=== PATIENT | male | born 1965 | race African-American/Black ===

== ENCOUNTER → 2017-08-13 | Outpatient (CLI) | payer MEDICARE ==
--- NOTE | 2017-08-13 11:58 | Diagnostic Imaging Report ---
PROCEDURE: CT chest without contrast. TECHNIQUE: Multiple contiguous axial images were obtained through the chest without the use of intravenous contrast. INDICATION: Lung nodule. There are no previous CT chest examinations available for comparison. FINDINGS: The plain film examination of the chest performed on 06/15/17 astutely suggested that there may be a 6 mm micronodule in the lateral aspect of the right upper lobe. On this study, there is a small 5.5 mm noncalcified nodule along the anterior aspect of the right upper lobe (image 19 of 69). I am not certain that this corresponds to the density seen on the chest x-ray. However, there are multiple other similar sized similar-appearing nodules in both lungs. This includes a 6.9 mm nodule in the left apex (image 11 of 69) and a 9.1 mm nodule in the right lower lobe (image 49 of 69). Even in retrospect, these nodules could not be identified on the plain film exam. These nodules are of uncertain etiology but could be related to a long-standing inflammatory/infectious process. The possibility that they are secondary to neoplastic disease should also certainly be considered. Because none of the nodules measure greater than 1 cm, they may not be manifested on PET/CT. Therefore, I would recommend that a short-term (3 month) followup CT chest exam be obtained for further evaluation. Also, if the patient has had a prior CT chest exam elsewhere, it would be helpful for comparison. There is also a tubular 7 x 18 mm density in the right lung base. This is of uncertain etiology but unlikely to be related to a malignancy. There is no consolidated pneumonia identified nor is there any evidence for a pleural effusion. The heart size is within normal limits. There are no coronary artery calcifications evident. The aorta is not abnormally dilated. There are a few small mediastinal and axillary nodes. The thyroid gland is generally unremarkable. The sections through the upper abdomen fail to show any sign of an acute abnormality. There is diverticulosis of the descending colon. The bone windows show no evidence for a fracture or for a destructive lesion. IMPRESSION: 1. There are multiple subcentimeter pulmonary nodules involving each lung. These are of uncertain etiology. Considerations and recommendations as above. 2. There is no acute cardiopulmonary abnormality noted. 3. There are a few small nodes in the mediastinum and both axillary regions. These are nonspecific. Dictated on workstation # [id number]
== END ==
LOC: RAD 09:39
PROVIDERS: ATTEND Nurse Practitioner Family
DX: R91.8 Other nonspecific abnormal finding of lung field (principal); R59.0 Localized enlarged lymph nodes; J45.909 Unspecified asthma, uncomplicated; J44.9 Chronic obstructive pulmonary disease, unspecified; J40 Bronchitis, not specified as acute or chronic
CPT/HCPCS: 71250

== ENCOUNTER → 2017-11-03 | Outpatient (CLI) | payer MEDICARE ==
--- NOTE | 2017-11-03 10:47 | Diagnostic Imaging Report ---
PROCEDURE: CT chest without contrast. TECHNIQUE: Multiple contiguous axial images were obtained through the chest without the use of intravenous contrast. INDICATION: Lung nodules Comparison is made to study of 08/13/2017. Several scattered subcentimeter nodules are again seen within both lungs. These have become slightly less conspicuous without evidence of new or enlarging lesion. Largest is located within the basilar aspect of the right upper lobe adjacent to the minor fissure and reaches 0.3 cm in maximal diameter. There is no evidence of infiltrate. No significant pleural or pericardial fluid is identified. There is no evidence of pathologically enlarged thoracic adenopathy. IMPRESSION: Scattered subcentimeter pulmonary nodules are stable or mildly decreased in conspicuity when compared to previous study. No new abnormality or adverse change identified. Consideration could be given to followup CT imaging in 6 months to document stability or resolution. Dictated by: Dictated on workstation # [id number]
== END ==
LOC: RAD 10:18
PROVIDERS: ATTEND Nurse Practitioner Family
DX: J44.9 Chronic obstructive pulmonary disease, unspecified (principal); R91.8 Other nonspecific abnormal finding of lung field
CPT/HCPCS: 71250

== ENCOUNTER → 2018-05-24 | Outpatient (CLI) | payer MEDICARE ==
--- NOTE | 2018-05-24 11:18 | Diagnostic Imaging Report ---
PROCEDURE: CT chest without contrast. TECHNIQUE: Multiple contiguous axial images were obtained through the chest without the use of intravenous contrast. INDICATION: Pulmonary nodules, followup. COMPARISON: Comparison is made with prior CT chest from 11/03/2017. FINDINGS: No axillary lymphadenopathy is seen. Lymph nodes in the mediastinum appear to be stable. No pericardial or pleural fluid is identified. Previously noted tiny nodules again show decreased conspicuity when compared with prior CT. These were visualized in the upper lobes bilaterally but are barely visible on today's study. There is a questionable left lower lobe nodule just above the diaphragm, image 56 approximately 4 mm in size. This was not seen on prior exam but may be secondary to slight differences in slice position. No suspicious mass is identified. Upper abdomen is unremarkable. IMPRESSION: Overall stable to improved appearance of chest when compared with examination from 11/03/2017. Dictated by: Dictated on workstation # [id number]
== END ==
LOC: RAD 10:13
PROVIDERS: ATTEND Nurse Practitioner Family
DX: J45.909 Unspecified asthma, uncomplicated (principal); R91.8 Other nonspecific abnormal finding of lung field
CPT/HCPCS: 71250

== ENCOUNTER → 2019-07-01 | Outpatient (CLI) | payer MEDICARE ==
[~2019-07-01] MED LIST: RT-ALBUTEROL SULF 2.5 MG/3 ML PRE-MIX VIAL INH ONE; RT-ALBUTEROL SULF 2.5 MG/3 ML PRE-MIX VIAL ONE
--- NOTE | 2019-07-01 10:16 | Diagnostic Imaging Report ---
PROCEDURE: CT chest without contrast. TECHNIQUE: Multiple contiguous axial images were obtained through the chest without the use of intravenous contrast. Auto Exposure Controls were utilized during the CT exam to meet ALARA standards for radiation dose reduction. INDICATION: Pulmonary nodule follow-up. FINDINGS: There are no additional pulmonary nodules seen in either lung. There is no hilar or mediastinal lymphadenopathy. There are no effusions or pneumothoraces. There are a few small axillary lymph nodes but none are pathologically enlarged. There are a few small mediastinal lymph nodes but none are pathologically enlarged. IMPRESSION: Unremarkable CT chest. Dictated by: Dictated on workstation # [id number]
== END ==
LOC: RT 09:53
PROVIDERS: ATTEND Nurse Practitioner Family
DX: J45.909 Unspecified asthma, uncomplicated (principal); J40 Bronchitis, not specified as acute or chronic; R91.1 Solitary pulmonary nodule
CPT/HCPCS: 71250; 94060; 94726; 94729

== ENCOUNTER → 2020-06-22 | Outpatient (CLI) | payer MEDICARE ==
[~2020-06-22] MED LIST changes: +HOLD METFORMIN - RECEIVED CONTRAST 20 ML VIAL IV SCH; +IOHEXOL 350 MG/ML 100 ML (OMNIPAQUE 350) VIAL IV ONE; +NS 100 ML (IVPB) BAG IV ONE; -RT-ALBUTEROL SULF 2.5 MG/3 ML PRE-MIX VIAL INH ONE; -RT-ALBUTEROL SULF 2.5 MG/3 ML PRE-MIX VIAL ONE
[2020-06-22 09:42] LABS: BUN/CREATININE RATIO 12; CREATININE SERUM 0.97 MG/DL (0.60-1.30); GFR ESTIMATED > 60
--- NOTE | 2020-06-22 12:40 | Diagnostic Imaging Report ---
EXAMINATION: CT chest w. TECHNIQUE: Multiple contiguous axial images were obtained through the chest with the use of intravenous contrast. All CT scans use one or more of the following dose optimizing techniques: automated exposure control, MA and/or KvP adjustment based on a patient size and exam type, or iterative reconstruction. INDICATION: Pulmonary nodule. COMPARISON: CT chest of 07/01/2019. FINDINGS: Lungs and airway: No pulmonary mass or nodular consolidation. No bronchiectasis or pulmonary fibrosis. Linear atelectasis present in the lingula and left lower lobe that is stable. Pleura: No pleural effusion or pneumothorax. Heart and mediastinum: Thyroid is normal. No supraclavicular or axillary lymphadenopathy. No mediastinal, hilar or juxtaphrenic lymphadenopathy. Heart is normal in size without pericardial effusion. Normal caliber thoracic aorta. Esophagus is unremarkable. Upper abdomen: No acute abnormality in the upper abdomen. Musculoskeletal: Normal regional skeleton. IMPRESSION:No intrathoracic abnormality. Specifically, no pulmonary nodule. Dictated by: Dictated on workstation # [id number]
== END ==
LOC: RAD 10:15
PROVIDERS: ATTEND Nurse Practitioner Family
DX: R91.8 Other nonspecific abnormal finding of lung field (principal)
CPT/HCPCS: 36415; 71260; 82565; 84520